=== PATIENT | female | born 1990 | race Caucasian/White ===

== ENCOUNTER 2020-12-18 10:42 | Emergency (ER) | payer OTHER, SELFPAY ==
[2020-12-18 11:02] VITALS: BP 121/76; PULSE 96; RESP 16; TEMP 36.8; O2SAT 98; BMI 30.4
--- NOTE | 2020-12-18 11:23 | HMH.EDUTC ---
[facility] [place] Clinical Impression: Abdominal pain Qualifiers: Abdominal location: unspecified location Qualified Code(s): R10.9 - Unspecified abdominal pain Disposition: Still a Patient Condition on Discharge: Good Referrals: Provider,Referral, [Primary Care Provider] - Medical Decision Making - Abdi Inquiry Pt receiving controlled substance: No Abdi was queried for this patient: No Vital Signs: 12/18/20 11:02 Temperature 98.3 F Temperature Source Oral Pulse Rate [Left] 96 H Respiratory Rate 16 Blood Pressure [Right Arm] 121/76 Blood Pressure Mean [Right Arm] 91 02 Sat by Pulse Oximetry 98 - Lab Data Lab results reviewed: Yes: I reviewed the patient's lab results. Medical Decision Narrative: Patient reports that she has been having pain in her upper abdomen for about a week that has continued and worse and seems to be worse at night States that today pain is worse with eating greasy foods or when she lays down States that today she is having some pain in the right side of abdomen and still not feeling well Discussed with patient and recommended transfer to the ED for further evaluation and examination and she agreed Patient transferred to the ED for further evaluation called ed and patient was moved to room 11 [facility] [place] - General Stated complaint: abdominal pain Time Seen by Provider: 12/18/20 11:23 Mode of Arrival: Ambulatory Source of Information: Patient Limitations: No Limitations Description of Symptoms (Recalled from Triage Doc. by RN): pt c/o epigasteric pain and pain between her shoulder blades. pt denies n/v/d and tenderness to palpation. this has been ongoing since 12/12. LMP 11/29. pt states pt is worse at night especially when she lays down and in the evening. pt also states pain is worse when she eats greasy meals. pain is 5/10 and achy. pain gets up to a 10 at night. HEENT Symptoms (Recalled from RN notes): No Resp Symptoms (Recalled from RN notes): No Skin Symptoms (Recalled from RN notes): No MS Symptoms (Recalled from RN notes): No Functional Status (Recalled from RN notes): na - History of Present Illness Provider Complaint: Patient states that she has been having pain on and off in her upper abdomen States that it is worse at night and after she eats something greasy States that when pain is at his worse it is bad States that today it is tolerable but she is still uncomfortable States that pain has started again in her upper abdomen and the right side of abdomen and shoots pain up between her shoulder blade area States that abdomen is tender to the touch. Denies fever denies vomiting or diarrhea States that nothing she has done has made it better or worse - Related Data Allergies Allergy/AdvReac Type Severity Reaction Status Date / Time amoxicillin [AMOXICILLIN] Allergy Mild Unverified 02/07/17 14:52 - Worker's Comp Is this a Worker's Comp case?: No [facility] History - Hepatitis A Screen Drug use history?: No High risk sexual behaviors?: No History of sexually transmitted infection?: No Currently employed?: No Childcare worker?: No Do you have indoor plumbing?: Yes Do you have electricity?: Yes Attestation statement:: This patient has been screened for Hepatitis A risk factors. I have reviewed the patient's past medical history: Yes ROS Obtained: Yes All systems reviewed & no additional complaints, Yes Systems reviewed as appropriate & no additional complaints - Constitutional Constitutional: Reports system reviewed and no additional complaints, except as docu, Denies body ache, Denies chills, Denies fever(s) - ENT Ears, Nose, Mouth, and Throat: Reports system reviewed and no additional complaints, except as docu, Denies sinus pain, Denies sinus pressure, Denies sore throat - Cardiovascular Cardiovascular: Reports system reviewed and no additional complaints, except as docu - Respiratory Respiratory: Reports system reviewed and no additional complaints, exc
[2020-12-18 11:26] LABS: Apearance,Urine Clear (Clear); Bilirubin,Urine Negative (Negative); Blood, Urine Negative (Negative); Color,Urine Straw (Yellow); Glucose,Urine (UA) Negative (Negative); Ketones,Urine Negative (Negative); PH,Urine 7.5 (5.0-8.5); Protein,Urine Negative (Negative); Specific Gravity, Urine 1.015 (1.005-1.030); UTC Leukocyte Esterase,Urine Negative (Negative); UTC Nitrate,Urine Negative (Negative); UTC Pregnancy Test, Urine Negative (Negative); Urobilinogen,Urine 0.2 EU/dl (0.2)
--- NOTE | 2020-12-18 11:41 | PC.NURSE ---
Report given to Meagan AVITIA. pt transported to ER room 11 by Joelle MELO
[2020-12-18 11:43] VITALS: BP 151/85; PULSE 100; RESP 16; TEMP 36.8; O2SAT 98; BMI 30.2
[2020-12-18 12:12] LABS: Chloride 102 mmol/L (98-107)
[2020-12-18 12:13] LABS: Potassium 3.7 mmoL/L (3.5-5.1); Sodium 141 mmol/L (136-145)
[2020-12-18 12:15] LABS: Alanine Aminotransferase 14 U/L (12-78); Alkaline Phosphatase 110 U/L (38-126); Aspartate Amino Transferase 20 U/L (14-36); Bilirubin,Total 0.2 mg/dl (0.2-1.3); Blood Urea Nitrogen 6 mg/dl (7-17); Creatinine Clearance Estimated 149 mL/min (50-200); Estimated Glomerular Filt Rate 118 ml/min (>60); GFR (African American) 143 ML/MIN (>60)
[2020-12-18 12:16] LABS: Albumin Level 4.7 g/dl (3.5-5.0); Albumin/Globulin Ratio 1.2 (1.1-1.8); Anion Gap 16.7 mEq/L (5-15); Calcium 9.6 mg/dl (8.4-10.2); Carbon Dioxide 26 mmol/L (22.0-30.0); Glucose 102 mg/dl (74-100); Lipase 28 U/L (23-300); Total Protein,Serum 8.7 g/dl (6.3-8.2)
--- NOTE | 2020-12-18 12:46 | US_ITS ---
PROCEDURE: US ABDOMEN LIMITED CLINICAL INDICATION: RUQ pain, patient ate 5 hours ago COMPARISON: No exams were available for comparison FINDINGS: PANCREAS: Unremarkable though a portion of the tail is obscured by bowel gas. No obvious mass or abnormal fluid collection. No ductal dilatation LIVER: No focal liver lesions demonstrated. Homogeneous echogenicity. No intrahepatic biliary ductal dilatation evident. There is appropriate direction of blood flow within a non dilated portal vein. The portal vein measures 0.75 cm RIGHT KIDNEY: Unremarkable. The right kidney measures 9.9 x 4.3 x 4.9 cm and appears sonographically normal. GALLBLADDER: No gallstones, gallbladder wall thickening, pericholecystic fluid, or biliary dilatation. IMPRESSION: Unremarkable limited abdominal ultrasound as detailed above Dictated by: Dr. Max Feliciano MD 12/18/2020 14:28 Dr. Max Feliciano MD in [place] 12/18/2020 14:28
[2020-12-18 12:50] LABS: Basophils # 0.1 K/mm3 (0-0.2); Basophils % 1.4 % (0.1-2.0); Eosinophils % 0.6 % (0.1-12.0); Hematocrit 38.1 % (37.0-47.0); Hemoglobin 11.6 g/dL (12.2-16.2); Lymphocytes # 1.4 K/mm3 (0.7-4.5); Lymphocytes % 21.2 % (10-50); Mean Corpuscular HGB Conc 30.5 g/dL (31.8-35.4); Mean Corpuscular Hemoglobin 24.5 pg (27.0-31.2); Mean Corpuscular Volume 80.4 fl (81-99); Mean Platelet Volume 8.9 fl (7.4-10.4); Monocytes # 0.2 K/mm3 (0.1-1.0); Monocytes % 3.7 % (1.7-9.3); Neutrophils # 4.8 K/mm3 (1.8-7.8); Neutrophils % 72.9 % (37.0-80.0); Platelet Count 355 K/mm3 (142-424); Red Blood Count 4.75 M/mm3 (4.20-5.40); Red Cell Distribution Width 15.3 % (11.5-17.5); White Blood Count 6.6 K/mm3 (4.8-10.8)
--- NOTE | 2020-12-18 12:53 | HMH.ITSTN ---
pt ate waiting til after 2pm to us
--- NOTE | 2020-12-18 12:56 | PC.NURSE ---
Rad advised pt could have her GB US at 2pm. PT agreeable to POC at this time. No new needs.
--- NOTE | 2020-12-18 13:48 | PC.NURSE ---
Pt to US
--- NOTE | 2020-12-18 14:10 | HMH.EDGENADL ---
ED Disposition Clinical Impression: Abdominal pain Qualifiers: Abdominal location: unspecified location Qualified Code(s): R10.9 - Unspecified abdominal pain Disposition: Home, Self-Care Condition on Discharge: Good Instructions: DI for Acute Abdominal Pain Additional Instructions: Avoid spicy, greasy, fried food. Follow-up with PCP/surgeon on Monday. Return the emergency department for fever, worsening pain, nausea with vomiting. Referrals: Provider,Referral, MD [Primary Care Provider] - Time of Disposition: 14:13 - Critical Care Critical Care Time: No Attestation: On 12/18/20, the high probability of a clinically significant, sudden or life threatening deterioration of the following system(s) required my full and direct attention, intervention and personal management. The time I documented below is in addition to time spent performing reported procedures but includes the following listed in this critical care notation. Medical Decision Making - Medical Records Medical records reviewed: Yes: I reviewed the patient's medical records. - Abdi Inquiry Pt receiving controlled substance: No Vital Signs: 12/18/20 11:02 12/18/20 11:43 Temperature 98.3 F 98.3 F Temperature Source Oral Oral Pulse Rate [Left] 96 H 100 H Respiratory Rate 16 16 Blood Pressure [Right Arm] 121/76 151/85 H Blood Pressure Mean [Right Arm] 91 107 Blood Pressure Source [Right Arm] Automatic Cuff Blood Pressure Position [Right Arm] Sitting 02 Sat by Pulse Oximetry 98 98 Oxygen Delivery Method Room Air - Lab Data Lab results reviewed: Yes: I reviewed the patient's lab results. Lab Results 12/18/20 11:25: Urine Color Straw, Urine Appearance Clear, Urine pH 7.5, Ur Specific [place] 1.015, Urine Protein Negative, Urine Glucose (UA) Negative, Urine Ketones Negative, Urine Blood Negative, Urine Nitrate Negative, Urine Bilirubin Negative, Urine Urobilinogen 0.2, Ur Leukocyte Esterase Negative, Tst Clinic Negative 12/18/20 11:50: WBC 6.6, RBC 4.75, Hgb 11.6 L, Hct 38.1, MCV 80.4 L, MCH 24.5 L, MCHC 30.5 L, RDW 15.3, Plt Count 355, MPV 8.9, Neut % (Auto) 72.9, Lymph % (Auto) 21.2, [place] % (Auto) 3.7, Eos % (Auto) 0.6, Baso % (Auto) 1.4, Neut # (Auto) 4.8, Lymph # (Auto) 1.4, [place] # (Auto) 0.2, Eos # (Auto) 0.0, Baso # (Auto) 0.1 12/18/20 11:50: Sodium 141, Potassium 3.7, Chloride 102, Carbon Dioxide 26, Anion Gap 16.7 H, BUN 6 L, Creatinine 0.60, Estimated Creat Clear 149, Estimated GFR 118, Est GFR ( Amer) 143, Glucose 102 H, Calcium 9.6, Total Bilirubin 0.2, AST 20, ALT 14, Alkaline Phosphatase 110, Total Protein 8.7 H, Albumin 4.7, Globulin 4.0 H, Albumin/Globulin Ratio 1.2, Lipase 28 Result diagrams: 12/18/20 11:50 12/18/20 11:50 Orders (Tests/Meds): ORDERS Category Date Time Status US Right Upper Quad [US abdomen limited] Stat Exams 12/18/20 12:46 Taken Medical Decision Narrative: 30yo F presents for right upper quadrant pain. HPI is concerning for gallbladder disease. Laboratory studies are benign. Patient sent for an ultrasound of the right upper quadrant. Patient is already eaten today and therefore CT scan was not limited. Her gallbladder is contracted. She will need to have this repeated at a later time when she is fasting. She is appropriate so for discharge home. Counseled to avoid spicy, greasy, fried foods. Follow with PCP/surgeon on Monday. General Adult HPI - General Chief complaint: Abdominal Pain Stated complaint: abdominal pain Time Seen by Provider: 12/18/20 11:23 Mode of Arrival: Ambulatory Source of Information: Patient Limitations: No Limitations Description of Symptoms (Recalled from ER Triage Doc. by RN): pt c/o epigasteric pain and pain between her shoulder blades. pt denies n/v/d and tenderness to palpation. this has been ongoing since 12/12. LMP 11/29. pt states pt is worse at night especially when she lays down and in the evening. pt also states pain is worse when she eats
[2020-12-18 14:35] VITALS: BP 122/74; PULSE 74; RESP 16; TEMP 36.8; O2SAT 98
== END 2020-12-18 14:37 | disposition home or self-care (01) ==
LOC: UTC 11:39 → ER 11:42
PROVIDERS: Nurse Practitioner; Emergency Provider Family Medicine
DX: R10.11 Right upper quadrant pain (principal); R10.13 Epigastric pain
CPT/HCPCS: 76705; 80053; 81003; 81025; 83690; 85025; 99283

== ENCOUNTER 2020-12-21 19:25 | Emergency (ER) | payer OTHER, SELFPAY ==
[2020-12-21 19:26] VITALS: BP 144/92; PULSE 86; RESP 16; TEMP 36.7; O2SAT 99; BMI 30.7
--- NOTE | 2020-12-21 20:09 | HMH.EDABDPAI ---
ED Disposition Clinical Impression: Gastritis Qualifiers: Gastritis type: unspecified gastritis Chronicity: unspecified Gastritis bleeding: without bleeding Qualified Code(s): K29.70 - Gastritis, unspecified, without bleeding Disposition: Home, Self-Care Condition on Discharge: Fair Instructions: DI for Gastritis, DI for Acute Abdominal Pain Additional Instructions: Please keep all follow-up appointments as scheduled. Return to the emergency department if you feel worse in any way. Prescriptions: Sucralfate [Carafate 1gm Tab] 1 gm PO Q6H #60 tab Transmission Status: Received by [id number] Famotidine [Pepcid 20mg Tablet] 20 mg PO DAILY #20 tab Transmission Status: Received by [id number] Referrals: Slim Mosqueda MD [Primary Care Provider] - - Critical Care Critical Care Time: No Attestation: On 12/21/20, the high probability of a clinically significant, sudden or life threatening deterioration of the following system(s) required my full and direct attention, intervention and personal management. The time I documented below is in addition to time spent performing reported procedures but includes the following listed in this critical care notation. Medical Decision Making - Medical Records Medical records reviewed: Yes: I reviewed the patient's medical records. - Abdi Inquiry Pt receiving controlled substance: No Vital Signs: 12/21/20 19:26 12/21/20 21:24 Temperature 98.1 F 98.6 F Temperature Source Oral Oral Pulse Rate 80 Pulse Rate [Right] 86 Respiratory Rate 16 20 Blood Pressure 124/75 Blood Pressure [Right Arm] 144/92 H Blood Pressure Mean [Right Arm] 109 Blood Pressure Source Automatic Cuff Blood Pressure Position Sitting 02 Sat by Pulse Oximetry 99 Oxygen Delivery Method Room Air Room Air - Lab Data Lab Results 12/21/20 19:33: Urine Color Yellow, Urine Appearance Slightly cloudy, Urine pH 6.0, Ur Specific [place] >= 1.030, Urine Protein Negative, Urine Glucose (UA) Negative, Urine Ketones Trace, Urine Blood Negative, Urine Nitrate Negative, Urine Bilirubin Negative, Urine Urobilinogen 0.2, Ur Leukocyte Esterase Trace, Urine WBC 5-10, Ur Squamous Epith Cells 3-5, Urine Bacteria 3+ 12/21/20 19:42: WBC 9.7, RBC 4.57, Hgb 11.1 L, Hct 36.2 L, MCV 79.1 L, MCH 24.4 L, MCHC 30.8 L, RDW 15.1, Plt Count 296, MPV 9.4, Neut % (Auto) 71.3, Lymph % (Auto) 23.2, [place] % (Auto) 4.0, Eos % (Auto) 0.7, Baso % (Auto) 0.8, Neut # (Auto) 6.9, Lymph # (Auto) 2.3, [place] # (Auto) 0.4, Eos # (Auto) 0.1, Baso # (Auto) 0.1 12/21/20 19:42: Sodium 138, Potassium 3.7, Chloride 105, Carbon Dioxide 24, Anion Gap 12.7, BUN 16, Creatinine 0.70, Estimated Creat Clear 129, Estimated GFR 99, Est GFR ( Amer) 120, Glucose 100, Calcium 9.5, Total Bilirubin 0.1 L, AST 21, ALT 12, Alkaline Phosphatase 110, Total Protein 8.3 H, Albumin 4.4, Globulin 3.9 H, Albumin/Globulin Ratio 1.1 12/21/20 19:42: Serum HCG, Qual Negative Result diagrams: 12/21/20 19:42 12/21/20 19:42 Orders (Tests/Meds): ED MEDICATIONS Discontinued Medications Generic Name Dose Route Start Last Admin Trade Name Ryan PRN Reason Stop Dose Admin Belladonna Alkaloids 60 ml 12/21/20 21:06 12/21/20 21:10 Gi Cocktail 60ml Udc PO 12/21/20 21:07 60 ml ONCE ONE Administration Dicyclomine HCl 20 mg 12/21/20 20:15 12/21/20 20:30 Dicyclomine 20 Mg/2ml Vial IM 12/21/20 20:16 20 mg ONCE ONE Administration ORDERS Category Date Time Status Urine Culture Stat Micro 12/21/20 19:33 Received - Reevaluation(s) Time: 21:06 Reevaluation #1: The patient states that Bentyl did not improve her symptoms at all. The patient is laboratory work-up is unremarkable. There is no evidence for life-threatening or dangerous causes for the patient's symptoms. The patient will be given a GI cocktail to see if whether this helps her with symptomatically relief. Time: 21:20 Reevaluation #3: The patient's sy
[2020-12-21 20:19] LABS: Microscopic, Urine URINE MICROSCOPIC (MICROSCOPIC)
[2020-12-21 20:23] LABS: Bilirubin,Urine Negative (Negative); Blood, Urine Negative (Negative); Color,Urine YELLOW (Yellow); Glucose,Urine (UA) Negative (Negative); Ketones,Urine TRACE (Negative); Leukocyte Esterase,Urine TRACE (Negative); Nitrate,Urine Negative (Negative); Protein,Urine Negative (Negative); Specific Gravity, Urine >= 1.030 (1.005-1.030); Urobilinogen,Urine 0.2 EU/dl (0.2)
[2020-12-21 20:26] LABS: Chloride 105 mmol/L (98-107); Potassium 3.7 mmoL/L (3.5-5.1); Sodium 138 mmol/L (136-145)
[2020-12-21 20:26] LABS: Appearance,Urine Slightly Cloudy (Clear)
[2020-12-21 20:28] LABS: Blood Urea Nitrogen 16 mg/dl (7-17); Creatinine Clearance Estimated 129 mL/min (50-200); Estimated Glomerular Filt Rate 99 ml/min (>60); GFR (African American) 120 ML/MIN (>60)
[2020-12-21 20:29] LABS: Alanine Aminotransferase 12 U/L (12-78); Albumin Level 4.4 g/dl (3.5-5.0); Albumin/Globulin Ratio 1.1 (1.1-1.8); Alkaline Phosphatase 110 U/L (38-126); Anion Gap 12.7 mEq/L (5-15); Aspartate Amino Transferase 21 U/L (14-36); Calcium 9.5 mg/dl (8.4-10.2); Carbon Dioxide 24 mmol/L (22.0-30.0); Globulin 3.9 g/dL (1.3-3.2); Glucose 100 mg/dl (74-100); Total Protein,Serum 8.3 g/dl (6.3-8.2)
[2020-12-21 20:34] LABS: Basophils # 0.1 K/mm3 (0-0.2); Basophils % 0.8 % (0.1-2.0); Eosinophils # 0.1 K/mm3 (0.0-0.4); Eosinophils % 0.7 % (0.1-12.0); Hematocrit 36.2 % (37.0-47.0); Hemoglobin 11.1 g/dL (12.2-16.2); Lymphocytes # 2.3 K/mm3 (0.7-4.5); Lymphocytes % 23.2 % (10-50); Mean Corpuscular HGB Conc 30.8 g/dL (31.8-35.4); Mean Corpuscular Hemoglobin 24.4 pg (27.0-31.2); Mean Corpuscular Volume 79.1 fl (81-99); Mean Platelet Volume 9.4 fl (7.4-10.4); Monocytes # 0.4 K/mm3 (0.1-1.0); Neutrophils # 6.9 K/mm3 (1.8-7.8); Neutrophils % 71.3 % (37.0-80.0); Platelet Count 296 K/mm3 (142-424); Red Blood Count 4.57 M/mm3 (4.20-5.40); Red Cell Distribution Width 15.1 % (11.5-17.5); White Blood Count 9.7 K/mm3 (4.8-10.8)
[2020-12-21 20:54] LABS: Bilirubin,Total 0.1 mg/dl (0.2-1.3)
[2020-12-21 21:14] LABS: HCG Qualitative, Serum Negative (Negative)
[2020-12-21 21:24] VITALS: BP 124/75; PULSE 80; RESP 20; TEMP 37; O2SAT 99
[2020-12-21 21:45] LABS: Bacteria,Urine 3+ /lpf
== END 2020-12-21 21:30 | disposition home or self-care (01) ==
PROVIDERS: Emergency Provider Emergency Medicine; PCP Internal Medicine Adolescent Medicine
DX: K29.70 Gastritis, unspecified, without bleeding (principal)
CPT/HCPCS: 80053; 81001; 84703; 85025; 87086; 96372; 99282

== ENCOUNTER 2024-12-30 14:08 | Outpatient (CLI) | payer BC, SELFPAY ==
--- OUTSIDE RECORDS SUMMARY | 2024-12-30 14:10 | XMS_ITS | Clinical Summary ---
Author Organization [facility] Address [address] [place] [address] Care Team Providers Care Rn Operating Room Name Role Phone Provider, No Known Primary Care Provider Unavail able Allergies Active Allergy Reactions Criticality Noted Date Comments Amoxicillin Unknown - High Severity Low 08/27/2015 Pt reports childhood reaction of unknown origin Medications No known medications Active Problems Problem Noted Date Diagnosed Date 39 weeks gestation of 05/24/2019 Currently 05/23/2019 Resolved Problems Problem Noted Date Diagnosed Date Resolved Date 08/27/2015 08/29/2015 Family History Medical History Relation Name Comments Breast cancer Maternal Grandmother Colon cancer Maternal Grandmother Relation Name Status Comments Maternal Grandmother Social History Tobacco Use Types Packs/Day Years Used Date Smoking Tobacco: Never Smokeless Tobacco: Never Tobacco Cessation:Counseling Given: No Alcohol Use Standard Drinks/Week Comments Not Currently 0 (1 standard drink = 0.6 oz pur e alcohol) Martinez Depression Scale Answer Date Recorded Martinez Depression Scale Total 8 05/24/2019 The thought of harming myself has occurred to me . Never 05/24/2019 Abuse Screen Answer Date Recorded Unsafe at Home or Work/School Not on file Feels Threatened by Someone? Not on file 10/2022 Does Anyone Keep You from Co ntacting Others or Doint Things Outside the Home? Not on file 11/28/2022 Physical Sign of Abuse Present Not on file 1 Housing Stability Answer Date Recorded Current Living Arrangements Not on file 10/2022 Potentially Unsafe Housing Conditions Not on sylvia e 11/28/2022 Family and Community Support Answer Tod e Recorded Help with Day-to-Day Activities Not on file 11/28/2022 Lonely or Isolated Not on file 11/28/2022 Employment Answer Date Recorded Do you want help finding or keeping work or a brenda b? Not on file 11/28/2022 Disabilities Answer Date Recorded Concentrating, Remembering, or Making Decisions Difficulty Not on file 11/28/2022 Doing Errands Independently Difficulty Not on fi le 11/28/2022 Education Answer Date Recorded Help with school or training? Not on file Preferred Language Not on file 11/28/2022 Comments No Sex and Gender Information Value Date Recorded Sex Assigned at Not on file Legal Sex Female 1:29 PM EDT Gender Identity Not on file Sexual Orientation Not on file Last Filed Vital Signs Vital Sign Reading Time Taken Comments Blood Pressure 108/68 07/22/2020 4:35 PM EDT Pulse 72 05/26/2019 2:30 PM EDT Temperature 36.4 C (97.5 F) 07/22/2020 4:35 PM EDT Respiratory Rate 16 05/26/2019 2:30 PM EDT Oxygen Saturation 100% 05/26/2019 12:30 PM EDT Inhaled Oxygen Concentration - - Weight 70.3 kg (155 lb) 07/22/2020 4:35 PM EDT Height 149.9 cm (4' 11 ) 05/23/2019 7:00 AM EDT Body Mass Index 31.31 05/23/2019 7:00 AM EDT Plan of Treatment Health Maintenance Due Date Last Done Comments Annual Gynecologic Pelvic an d Breast Exam 1991 ANNUAL PHYSICAL 05/15/2019 INFLUENZA VACCINE 09/20/2024 TDAP/TD VACCINES (2 - Td or Tdap) 10/01/2028 019 HEPATITIS C SCREENING Completed 12/05/2018 Pneumococcal Vaccine 0-49 Aged Out No longer eligible based on patient's age to complete this topic Procedures Procedure Name Priority Date/Time Associated Diagnosis Comments HEPATITIS C ANTIBODY Routine 12/05/2018 from Last 3 Months or Most Recently Relevant to Health Maintenance Results * Hepatitis C Antibody (12/05/2018) External Hepatitis C Ab negative Blood Historical Provider LAB BLOOD ORDERABLES Xiao acosta Result from Last 3 Months or Most Recently Relevant to Health Maintenance Insurance 1936 [address] [place] [id number] [facility] Advance Directives * CPR (Attempt to Resuscitate) (Latest Code Status on File) Date Activated Date Inactivated Comments 05/24/2019 10:02 PM 05/26/2019 5:44 PM Question Answer Comments Code Status (Patient has no pulse and is not breathing): CPR (Attempt to Resuscitate) Medical Interventions (Patie nt has pulse or is breathing): Full * CPR (Attempt to Resuscitate) Date Activated Date Inactivated Comments 05/23/2019 8:47 AM 05/24/2019 10:02 PM Question Answer Comments Code Status (Patient has no pulse and is not breathing): CPR (Attempt to Resuscitate) Medical Interventions (Patie nt has pulse or is breathing): Full * Full Code Date Activated Date Inactivated Comments 08/28/2015 1:05 AM 08/29/2015 3:56 PM * Full Code Date Activated Date Inactivated Comments 08/27/2015 5:49 AM 08/28/2015 1:05 AM Care Teams Rn Operating Room Relationship Specialty Start Date End Date Provider, No Known [facility] [place] [address] PCP - General 08/27/15
--- NOTE | 2024-12-30 14:11 | MR_ITS ---
FINAL REPORT TECHNIQUE: Multiplanar MR, without and with gadolinium enhancement CLINICAL HISTORY: left sided numbness, specifically in her left leg and left arm from the elbow down. vision disturbances in the left eye dizziness symptoms x1 month COMPARISON: None FINDINGS: Diffusion sequences show no signal abnormality to indicate acute infarct. No mass, hemorrhage or edema is seen. Ventricles are normal. Major vascular flow voids are intact. Following contrast administration, no mass or abnormal enhancement is seen. IMPRESSION: Unremarkable MR evaluation the brain with contrast Reviewed, Interpreted and Dictated by Loyd Ba MD Transcribed by Vonda Brown Authenticated and [facility]
[2024-12-30] MEDS: GADOTERIDOL INJ 20ML SYRINGE 13 ML IV (15:01)
== END 2024-12-30 23:59 | disposition home or self-care (01) ==
LOC: RAD 14:09
PROVIDERS: PCP Internal Medicine Adolescent Medicine; Visit Provider Nurse Practitioner Family
DX: M62.81 Muscle weakness (generalized) (principal); H53.9 Unspecified visual disturbance; R20.2 Paresthesia of skin; R42 Dizziness and giddiness
CPT/HCPCS: 70553; A9576